=== PATIENT | female | born 1965 | race Caucasian/White ===

== ENCOUNTER 2017-01-11 20:23 | Emergency (ER) | payer OTHER ==
[~2017-01-11] VITALS: Ht 149.9 cm; Wt 53.5 kg
[~2017-01-11 20:23] MED LIST: ALBU8.5H3 INH; AZIT250T94 PO; BENZ1LOZ52 MM; GUAI473L22 PO; HYDR-3498 PO; IBUP-1542 PO
[2017-01-11 20:34] VITALS: Ht 149.9 cm; Wt 53.5 kg
[2017-01-11] MEDS ORDERED: KETOROLAC 30 MG INJ IM STA (21:43)
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
[2017-01-12] MEDS ORDERED: IBUP-1542 PO (00:21)
[2017-01-12 00:28] VITALS: BP 115/78; PULSE 78; RESP 18; TEMP 98.6
== END 2017-01-12 00:29 | disposition home or self-care (01) ==
LOC: FTE 20:23
DX: S30.0XXA Contusion of lower back and pelvis, initial encounter (principal); V01.10XA Pedestrian on foot injured in collision with pedal cycle in traffic accident, initial encounter
CPT/HCPCS: 72220; 73030; 73080; 73110; J1885; 96372